=== PATIENT | female | born 1945 | race Two or more races ===

== ENCOUNTER 2018-07-15 12:28 | Observation (INO) | payer OTHER ==
[2018-07-15] MEDS ORDERED: NS 1,000 ML IV ONE ×3 (12:58→13:53)
--- NOTE | 2018-07-15 13:03 | EDPHY ---
H & P Stated Complaint: abd pain Time Seen by Provider: 07/15/18 12:53 HPI/ROS: CHIEF COMPLAINT: Abdominal pain HISTORY OF PRESENT ILLNESS: This is a 73-year-old Belarusian-speaking female who presents with 3 days of right-sided abdominal pain. She describes it as initially being more diffuse in then moving to the right. She points to her right lower quadrant/groin area when asked to identify the site of the pain. However, she also identifies a right upper quadrant and states that when she takes a deep breath she has pain throughout the right side. She was not aware of fever. She had 1 bout of vomiting yesterday, none since. She does not currently have nausea. She has not had diarrhea or constipation. No urinary symptoms. She has had an umbilical hernia repair, no other abdominal surgeries. REVIEW OF SYSTEMS: A ten system review of systems was performed and is negative with the exception of the items mentioned in the HPI. Past medical history: She describes poor circulation in her feet and seasonal allergies Past surgical history: Umbilical hernia repair Social history: She lives with . No tobacco or alcohol use. She is Belarusian -speaking. A [place]ian performance solutions specialist was used for all patient encounters. General Appearance: Alert. Vital signs reviewed. Initial blood pressure 140/ 84, temperature 38.5 degrees, heart rate 121. Eyes: Pupils equal and round, no conjunctival injection, no discharge. Anicteric. ENT, Mouth: Mucous membranes are moist, no oropharyngeal erythema or edema. Neck: No lymphadenopathy, supple. Respiratory: Lungs are clear to auscultation; no wheezes, rales, or rhonchi. Cardiovascular: Tachycardic; no murmur, rub, or gallop. Gastrointestinal: Abdomen is soft with tenderness, mild, in the right upper quadrant and also in the right lower quadrant, above McBurney's point, no guarding, no masses or organomegaly, bowel sounds normal. Skin: Warm and dry, no rashes on exposed skin, normal color. Back: Nontender to palpation over the thoracolumbar spine. No CVAT. Extremities: No lower extremity edema, no calf tenderness or swelling. Neurological: Alert and oriented. Moving all four extremities easily and equally. Psychiatric: Normal affect. - Personal History Current Tetanus/Diphtheria Vaccine: Yes Current Tetanus Diphtheria and Acellular Pertussis (TDAP): Yes - Medical/Surgical History Hx Asthma: No Hx Chronic Respiratory Disease: No Hx Diabetes: No Hx Cardiac Disease: No Hx Renal Disease: No Hx Cirrhosis: No Hx Alcoholism: No Hx HIV/AIDS: No Hx Splenectomy or Spleen Trauma: No - Social History Smoking Status: Never smoked Constitutional: Initial Vital Signs Temperature (C) 38.5 C H 07/15/18 12:31 Heart Rate 121 H 07/15/18 12:31 Respiratory Rate 20 07/15/18 12:31 Blood Pressure 140/84 H 07/15/18 12:31 O2 Sat (%) 94 07/15/18 12:31 O2 Delivery Mode Room Air Allergies/Adverse Reactions: No Known Allergies Allergy (Unverified 07/15/18 12:35) Home Medications: Medication Instructions Recorded Loratadine 10 mg PO DAILY 07/15/18 Pentoxifylline [TRENTAL 400mg (*)] 400 mg PO DAILY 07/15/18 Sertraline HCl [Zoloft 25mg (*)] 0 mg PO DAILY 07/15/18 Hydrocodone/APAP 5/325 [[place] 1 tab PO Q4-6PRN PRN #20 tab 07/16/18 5/325 (*)] Medical Decision Making ED Course/Re-evaluation: 73-year-old female with right-sided abdominal pain. Initial vital signs meet septic screening criteria with heart rate of 121 and temperature of 38.5 degrees. Sepsis workup is initiated. She is given Tylenol 1 g for fever. Abdominal exam is not entirely consistent with appendicitis, but she does have right lower quadrant tenderness. She also has some right upper quadrant tenderness raising the specter of gallbladder disease. Initial lactate 2.9. Patient re-evaluated at 1:55 p.m.. She states that she is feeling better. She is no longer tachycardic. Temperature 37.4 degrees. On reexamination of her abdomen she continues right upper and right lower quadrant tenderness, perhaps slightly worse in the right quadrant now. Liver functions are essentially normal with the exception of bilirubin that is elevated, primarily unconjugated. Her white blood cell count is over 22,000. Repeat lactate after IVF is 1.4. CT of abd/pelvis shows cholecystitis (I have reviewed the images and discussed with ). Dr. Carter notified. CXR reviewed, NAPD. Flagyl and ceftriaxone IV ordered. Patient received a total of 3L IVF in ED. Dr. Carter examined patient in ED and is planning admission and cholecystectomy. She remained stable while in ED. Differential Diagnosis: I considered ddx that includes but is not limited to cholecystitis, appendicitis , mesenteric ischemia, bowel obstruction, urinary tract infection/ pyelonephritis. - Data Points Laboratory Results: Laboratory Results 07/15/18 13:00 07/15/18 13:00 Microbiology Results: MICROBIOLOGY 07/15/18 14:05 Blood Blood Culture - Preliminary 07/15/18 13:00 Blood Blood Culture - Preliminary Medications Given: Discontinued Medications Acetaminophen (Tylenol) 1,000 mg PO EDNOW ONE Stop: 07/15/18 13:09 Last Admin: 07/15/18 13:15 Dose: 1,000 mg Bupivacaine HCl (Sensorcaine 0.5% Vial) Confirm Administered Dose 30 ml .ROUTE .STK-MED ONE Stop: 07/15/18 19:15 Last Admin: 07/15/18 20:09 Dose: 30 ml Cetirizine HCl (Zyrtec) 10 mg PO DAILY REEMA Stop: 01/12/19 08:59 Last Admin: 07/16/18 08:31 Dose: 10 mg Sodium Chloride (Ns) 1,000 mls @ 0 mls/hr IV ONCE ONE PRN Reason: Wide Open Stop: 07/15/18 12:59 Last Admin: 07/15/18 13:04 Dose: 1,000 mls Sodium Chloride (Ns) 1,000 mls @ 0 mls/hr IV EDNOW ONE; Wide Open PRN Reason: Protocol Stop: 07/15/18 13:09 Last Admin: 07/15/18 14:01 Dose: 1,000 mls Sodium Chloride (Ns) 1,000 mls @ 0 mls/hr IV EDNOW ONE; Wide Open PRN Reason: Protocol Stop: 07/15/18 13:54 Last Admin: 07/15/18 15:20 Dose: 1,000 mls Ceftriaxone Sodium/Dextrose (Rocephin 1 Gm (Premix)) 50 mls @ 100 mls/hr IV EDNOW ONE PRN Reason: Protocol Stop: 07/15/18 15:37 Last Admin: 07/15/18 15:21 Dose: 50 mls Metronidazole/Sodium Chloride (Flagyl 500 Mg (Premix)) 100 mls @ 100 mls/hr IV EDNOW ONE PRN Reason: Protocol Stop: 07/15/18 16:07 Last Admin: 07/15/18 15:45 Dose: 100 mls Ibuprofen (Motrin) 600 mg PO Q6HRS PRN PRN Reason: Pain, Mild Stop: 01/11/19 22:02 Last Admin: 07/16/18 08:31 Dose: 600 mg Lidocaine HCl (Xylocaine-Mpf 1% Sdv) Confirm Administered Dose 5 ml .ROUTE .STK- MED ONE Stop: 07/15/18 19:15 Last Admin: 07/15/18 20:10 Dose: 5 ml Lidocaine HCl (Xylocaine-Mpf 1% Sdv) Confirm Administered Dose 25 ml .ROUTE .STK -MED ONE Stop: 07/15/18 19:15 Last Admin: 07/15/18 22:36 Dose: Not Given Midazolam HCl (Versed) 1 mg IVP ONCALL ONE Stop: 07/15/18 19:09 Last Admin: 07/15/18 19:29 Dose: 1 mg Sertraline HCl (Zoloft) 50 mg PO DAILY REEMA Stop: 01/12/19 08:59 Last Admin: 07/16/18 08:31 Dose: 50 mg Departure - Departure Disposition: [facility] Inpatient Acute Clinical Impression: Acute cholecystitis Condition: Fair
[2018-07-15] MEDS ORDERED: ACETAMINOPHEN 500 MG TAB PO ONE (13:08)
[2018-07-15 13:15] LABS: PLATELET COUNT 372 10^3/uL (150-400)
[2018-07-15 13:32] LABS: INR 1.24 (0.83-1.16); PROTIME(PATIENT) 15.1 SEC (12.0-15.0)
[2018-07-15] MEDS ORDERED: IOPAMIDOL (ISOVUE-300) 100 ML BTL ONE (14:09)
--- NOTE | 2018-07-15 16:32 | PDGENHP ---
History and Physical - Chief Complaint Right upper quadrant abdominal pain - History of Present Illness Teresa is a 73-year-old woman who presents with -3 days of right upper quadrant abdominal pain not associated with food. The patient has been eating minimal amounts due to the abdominal pain. She denies nausea vomiting or diarrhea. She denies acholic stools or signs of obstructive jaundice. no prior episodes. Her pain is 6-8 out of 10. Pressure and deep breathing make it worse. Resting makes it better. History Information - Allergies/Home Medication List Allergies/Adverse Reactions: No Known Allergies Allergy (Unverified 07/15/18 12:35) Home Medications: Loratadine 10 mg PO DAILY 07/15/18 [Last Taken 07/15/18] Pentoxifylline [TRENTAL 400mg (*)] 400 mg PO DAILY 07/15/18 [Last Taken Unknown] Sertraline HCl [Zoloft 25mg (*)] 0 mg PO DAILY 07/15/18 [Last Taken Unknown] I have personally reviewed and updated: medical history, surgical history - Past Medical History hypertension, peripheral artery disease - Surgical History Reports: hernia repair (lower abdominal) - Family History Positive for: non-pertinent - Social History Smoking Status: Never smoked Review of Systems Review of Systems: ROS: 2-9 pt reviewed & negative except for what was stated in HPI & below Constitutional: Reports: malaise Gastrointestinal: Reports: abdominal pain. Denies: black stools, rectal bleeding, diarrhea, nausea Physical Exam Physical Exam: alert oriented minimal distress Anicteric sclera Regular rate and rhythm Clear to auscultation bilaterally Abdomen soft tender in the right upper quadrant positive Morillo's sign Extremities without edema 2+ / 2+ dorsalis pedisradial and femoral pulses nonfocal neurologic exam Trachea midline no JVD Skin normal turgor and tone Normal affect and mood Temp Pulse Resp BP Pulse Ox 37.0 C 83 16 116/57 L 93 07/15/18 16:11 07/15/18 16:11 07/15/18 16:11 07/15/18 16:11 07/15/18 16:11 Lab Data & Imaging Review 07/15/18 13:00 07/15/18 13:00 WBC 22.47 10^3/uL (3.80-9.50) H 07/15/18 13:00 RBC 5.07 10^6/uL (4.18-5.33) 07/15/18 13:00 Hgb 15.0 g/dL (12.6-16.3) 07/15/18 13:00 Hct 43.7 % (38.0-47.0) 07/15/18 13:00 MCV 86.2 fL (81.5-99.8) 07/15/18 13:00 MCH 29.6 pg (27.9-34.1) 07/15/18 13:00 MCHC 34.3 g/dL (32.4-36.7) 07/15/18 13:00 RDW 13.1 % (11.5-15.2) 07/15/18 13:00 Plt Count 372 10^3/uL (150-400) 07/15/18 13:00 MPV 9.9 fL (8.7-11.7) 07/15/18 13:00 Neut % (Auto) Not Reported 07/15/18 13:00 Lymph % (Auto) Not Reported 07/15/18 13:00 [place] % (Auto) Not Reported 07/15/18 13:00 Eos % (Auto) Not Reported 07/15/18 13:00 Baso % (Auto) Not Reported 07/15/18 13:00 Nucleat RBC Rel Count Not Reported 07/15/18 13:00 Absolute Neuts (auto) Not Reported 07/15/18 13:00 Absolute Lymphs (auto) Not Reported 07/15/18 13:00 Absolute Monos (auto) Not Reported 07/15/18 13:00 Absolute Eos (auto) Not Reported 07/15/18 13:00 Absolute Basos (auto) Not Reported 07/15/18 13:00 Absolute Nucleated RBC Not Reported 07/15/18 13:00 Immature Gran % Not Reported 07/15/18 13:00 Seg Neutrophils % 72.3 % 07/15/18 13:00 Band Neutrophils % 0.0 % 07/15/18 13:00 Lymphocytes % 17.8 % 07/15/18 13:00 Monocytes % 9.9 % 07/15/18 13:00 Eosinophils % 0.0 % 07/15/18 13:00 Basophils % 0.0 % 07/15/18 13:00 Metamyelocytes % 0.0 % 07/15/18 13:00 Myelocytes % 0.0 % 07/15/18 13:00 Promyelocytes % 0.0 % 07/15/18 13:00 Blast Cells % 0.0 % 07/15/18 13:00 Immature Gran # Not Reported 07/15/18 13:00 Absolute Seg Neuts 16.25 10^3/uL (1.70-6.50) H 07/15/18 13:00 Absolute Band Neuts 0.00 10^3/uL (0.00-0.70) 07/15/18 13:00 Absolute Lymphocytes 4.00 10^3/uL (1.00-3.00) H 07/15/18 13:00 Absolute Monocytes 2.22 10^3/uL (0.30-0.80) H 07/15/18 13:00 Absolute Eosinophils 0.00 10^3/uL (0.03-0.40) L 07/15/18 13:00 Absolute Basophils 0.00 10^3/uL (0.02-0.10) L 07/15/18 13:00 Absolute Metamyelocyte 0.00 10^3/mL (0.00-0.00) 07/15/18 13:00 Absolute Myelocytes 0.00 10^3/mL (0.00-0.00) 07/15/18 13:00 Absolute Promyelocytes 0.00 10^3/uL (0.00-0.00) 07/15/18 13:00 Absolute Plasma Cells 0.00 10^3/uL (0.00-0.00) 07/15/18 13:00 Nucleated RBCs 0 /100 WBC (0-0) 07/15/18 13:00 RBC/WBC/PLT Morphology NORMAL (NORMAL) 07/15/18 13:00 Absolute Blast Cells 0.00 10^3/uL (0.00-0.00) 07/15/18 13:00 Plasma Cells % 0.0 % 07/15/18 13:00 Platelet Estimate ADEQUATE (ADEQ) 07/15/18 13:00 PT 15.1 SEC (12.0-15.0) H 07/15/18 13:00 INR 1.24 (0.83-1.16) H 07/15/18 13:00 APTT 30.5 SEC (23.0-38.0) 07/15/18 13:00 VBG Lactic Acid 1.4 mmol/L (0.7-2.1) 07/15/18 14:55 Sodium 136 mEq/L (135-145) 07/15/18 13:00 Potassium 4.4 mEq/L (3.5-5.2) 07/15/18 13:00 Chloride 100 mEq/L (97-110) 07/15/18 13:00 Carbon Dioxide 21 mEq/l (22-31) L 07/15/18 13:00 Anion Gap 15 mEq/L (6-14) H 07/15/18 13:00 BUN 16 mg/dL (7-23) 07/15/18 13:00 Creatinine 1.0 mg/dL (0.6-1.0) 07/15/18 13:00 Estimated GFR 54 07/15/18 13:00 Glucose 171 mg/dL (70-100) H 07/15/18 13:00 Calcium 8.7 mg/dL (8.5-10.4) 07/15/18 13:00 Total Bilirubin 1.9 mg/dL (0.1-1.4) H 07/15/18 13:00 Conjugated Bilirubin 0.1 mg/dL (0.0-0.5) 07/15/18 13:00 Unconjugated Bilirubin 1.8 mg/dL (0.0-1.1) H 07/15/18 13:00 AST 34 IU/L (14-46) 07/15/18 13:00 ALT 37 IU/L (9-52) 07/15/18 13:00 Alkaline Phosphatase 76 IU/L (38-126) 07/15/18 13:00 Total Protein 7.8 g/dL (6.3-8.2) 07/15/18 13:00 Albumin 4.1 g/dL (3.5-5.0) 07/15/18 13:00 Lipase 44 IU/L (23-300) 07/15/18 13:00 Imaging Review: CT personally reviewed on PACS discussed with Dr. Napier -agree with with acute cholecystitis no stones are seen but this is not the best modality to see them Chest X-Ray results: no infiltrate Assessment & Plan Assessment: acute cholecystitis with ascites Plan: laparoscopic cholecystectomy possible open conversions. The risks benefits and alternatives to surgery have been outlined with the patient and her son-in-law through encapsulator. All questions were addressed. Possibility for open surgery based on her leukocytosis and degree of inflammation werespecifically outlined. Although her bilirubin is up all of her transaminases and alkaline phosphatase are normal I believe this is secondary to the inflammation. She has been placed on ceftriaxone already. Await surgery for 8 hours after her last meal at 11:00 this morning. Anticipate at least 23 hour stay longer for signs of continued inflammation or open operation
[2018-07-15] MEDS ORDERED: LR 1,000 ML IV SCH (17:00)
[2018-07-15] MEDS ORDERED: MIDAZOLAM 2 MG/2 ML VIAL IVP ONE (19:08)
[2018-07-15] MEDS ORDERED: BUPIVACAINE 0.5% 30 ML SDV ONE (19:14)
[2018-07-15] MEDS ORDERED: LIDOCAINE 1% 5 ML SDV ONE ×2 (19:14)
--- NOTE | 2018-07-15 19:20 | PDANEPAE ---
ANE History of Present Illness Lap vs open cholecystomy ANE Past Medical History - Cardiovascular History Hx Hypertension: No Hx Arrhythmias: No Hx Chest Pain: No Hx Coronary Artery / Peripheral Vascular Disease: No Hx CHF / Valvular Disease: No Hx Palpitations: No - Pulmonary History Hx COPD: No Hx Asthma/Reactive Airway Disease: No Hx Recent Upper Respiratory Infection: No Hx Oxygen in Use at Home: No Hx Sleep Apnea: No - Endocrine History Hx Diabetes: No Hypothyroid: No Hyperthyroid: No Obesity: mild - Chronic Pain History Chronic Pain: No ANE Review of Systems Review of Systems: ANE Patient History - Allergies Allergies/Adverse Reactions: No Known Allergies Allergy (Unverified 07/15/18 12:35) - Home Medications Home Medications: Loratadine 10 mg PO DAILY 07/15/18 [Last Taken 07/15/18] Pentoxifylline [TRENTAL 400mg (*)] 400 mg PO DAILY 07/15/18 [Last Taken Unknown] Sertraline HCl [Zoloft 25mg (*)] 0 mg PO DAILY 07/15/18 [Last Taken Unknown] - NPO status NPO Since - Liquids (Date): 07/15/18 NPO Since - Liquids (Time): 13:15 NPO Since - Solids (Date): 07/15/18 NPO Since - Solids (Time): 11:00 - Smoking Hx Smoking Status: Never smoked ANE Labs/Vital Signs - Labs Result Diagrams: 07/15/18 13:00 07/15/18 13:00 - Vital Signs Blood Pressure: 116/57 Heart Rate: 83 Respiratory Rate: 16 O2 Sat (%): 93 Height: 155 cm Weight: 66.497 kg ANE Physical Exam - Airway Neck exam: FROM Mallampati Score: Class 1 - Pulmonary Pulmonary: no respiratory distress, no rales or rhonchi - Cardiovascular Cardiovascular: regular rate and rhythym, systolic murmur - ASA Status ASA Status: II ANE Anesthesia Plan Anesthesia Plan: general endotracheal anesthesia
[2018-07-15] MEDS ORDERED: PROPOFOL/EMULSION 500 MG/50 ML BOTTLE IV ONE ×2 (19:24)
[2018-07-15] MEDS ORDERED: fentaNYL 250 MCG/5 ML INJ ONE (19:24)
[2018-07-15] MEDS ORDERED: MIDAZOLAM 2 MG/2 ML VIAL ONE (19:27)
[2018-07-15] MEDS ORDERED: ONDANSETRON 4 MG/2 ML VIAL ONE (19:55)
[2018-07-15] MEDS ORDERED: DEXAMETHASONE 4 MG/ML VIAL ONE ×3 (19:55→20:33)
[2018-07-15] MEDS ORDERED: PHENYLEPHRINE HCL 100 MCG/ML SYR ONE (20:31)
[2018-07-15] MEDS ORDERED: ROCURONIUM 50 MG/5 ML VIAL ONE ×2 (20:31)
[2018-07-15] MEDS ORDERED: HYDROmorphONE/DILAUDID 1 MG/ML INJ IVP PRN (21:26)
[2018-07-15] MEDS ORDERED: ALBUTEROL 3 ML DEYVIAL IH PRN (21:26)
[2018-07-15] MEDS ORDERED: ONDANSETRON 4 MG/2 ML VIAL IVP PRN (21:26)
[2018-07-15] MEDS ORDERED: PROMETHAZINE HCL 25 MG/ML INJ IVP PRN (21:26)
[2018-07-15] MEDS ORDERED: HYDROCODONE/APAP 5/325 TAB PO PRN ×2 (21:26→22:03)
[2018-07-15] MEDS ORDERED: NALOXONE HCL 0.4 MG/ML INJ IVP PRN (21:26)
[2018-07-15] MEDS ORDERED: fentaNYL 100 MCG/2 ML INJ IVP PRN (21:26)
[2018-07-15] MEDS ORDERED: LABETALOL HCL 5 MG/ML 20 ML MDV IVP PRN (21:26)
[2018-07-15] MEDS ORDERED: LR 500 ML IV PRN (21:26)
[2018-07-15] MEDS ORDERED: KETOROLAC 30 MG/1 ML SDV ONE (21:32)
[2018-07-15] MEDS ORDERED: SUGAMMADEX SODIUM 200 MG/2 ML VIAL IVP ONE (21:33)
[2018-07-15] MEDS ORDERED: IBUPROFEN 600 MG TAB PO PRN (22:03)
--- NOTE | 2018-07-15 22:05 | POSTOPPROG ---
Post Op Note Date of Operation: 07/15/18 Surgeon: Rashid Carter [employer] Firefighter: keith Anesthesiologist: Jonah Anesthesia: GET(General Endotracheal) Pre-op Diagnosis: Acute cholecystitis Post-op Diagnosis: same Procedure: Lap suzy Findings: purulent ascities, stones/inflammation Inf/Abcess present in the surg proc area at time of surgery?: Yes Depth: Organ Space EBL: 50-100 Specimen(s): gallbladder and stones to permanent pathology
--- NOTE | 2018-07-15 22:11 | SUROPNOTE ---
[facility] Operative Report - Surgery Date of surgery: 07/15/2018 Indications for surgery: This is a 73-year-old patient with 2 days of worsening right upper quadrant abdominal pain. Found to have leukocytosis of 22,[address] scan demonstrative of acute cholecystitis. After understanding the risks and benefits of the surgery the patient was consented to laparoscopic possible open cholecystectomy. Preop diagnosis: Acute cholecystitis Postop diagnosis:Same Procedure: laparoscopic cholecystectomy Surgeon: Rashid Carter Anesthesiologist: Dr. Roselia Mckenzie General endotracheal anesthesia Specimen gallbladder and stones permanent pathology EBL 100 mL Procedure details: The patient was brought to the operating room after induction of endotracheal anesthesia in supine position her abdomen was prepped with chlorhexidine and draped sterilely, time out procedure was then performed according incisional standards. Local anesthetic was then infused in the skin and subcutaneous tissues of the trocar sites. Open supraumbilical trocar placement was performed in the standard fashion. The abdomen was insufflated to 15 torr with carbon dioxide. Purulent ascites was noted on the right paracolic gutter extending to the pelvis This was aspirated. The gallbladder was covered by omentum and blunt and electrocautery dissection was used to free the gallbladder Due to the intense amount of inflammation around the infundibulum it was decided to perform a top down approach. The gallbladder was dissected away from the liver bed using electrocautery. The cystic artery and cystic duct were then identified the triangle of KIM the artery was triply clipped and ligated the cystic duct was controlled using 0 Vicryl Endoloop. Hemostasis was then assured. Needle instruments sponge counts were gallbladder was brought out of the abdomen in an Endopouch through the umbilical incision. Working trochars removed the fascia was reapproximated using 0 Vicryl at the level of the umbilicus all ports were then reapproximated the skin level using 4-0 Monocryl. Dermabond was applied the patient was awakened extubated and taken to the recovery room in stable condition with no immediate complications.
--- NOTE | 2018-07-16 08:11 | SOAPPROG ---
SOAP Progress Note Assessment/Plan: Assessment/Plan: 73 yo POD#1 s/p lap suzy for acute cholecystitis Doing well Vanessa liquids OOB with assist Anicteric RRR CTA Soft appropriately tender. Non distended. incisions c/d Adv diet D/C later today/tomorrow if meets unit criteria, tolerating food and afebrile 07/16/18 08:07 Objective: Vital Signs Temp Pulse Resp BP Pulse Ox 36.8 C 71 16 133/58 H 95 07/16/18 03:46 07/16/18 03:46 07/16/18 03:46 07/16/18 03:46 07/16/18 03:46 07/15/18 07/16/18 07/17/18 05:59 05:59 05:59 Intake Total 4630 Output Total 700 Balance 3930 PT 15.1 SEC (12.0-15.0) H 07/15/18 13:00 INR 1.24 (0.83-1.16) H 07/15/18 13:00 ICD10 Worksheet Patient Problems: Problems Problem Status Onset Acute cholecystitis with chronic cholecystitis Acute - ICD10 Problem Qualifiers (1) Acute cholecystitis with chronic cholecystitis
[2018-07-16] MEDS ORDERED: CETIRIZINE 10 MG TAB PO SCH (09:00)
[2018-07-16] MEDS ORDERED: SERTRALINE HCL 25 MG TAB PO SCH (09:00)
--- NOTE | 2018-07-16 11:17 | POSTANESTH ---
Post Anesthetic Evaluation Cardiovascular Status: Normal, Stable Respiratory Status: Normal, Stable Level of Consciousness/Mental Status: Can Participate in Eval Pain Control: Adequate, Prn Tx Ordered Nausea/Vomiting Control: Adequate, Prn Tx Ordered Complications Possibly Related to Anesthesia: None Noted
--- NOTE | 2018-07-16 11:24 | ASMTCMCOM ---
CM Note CM Note Notes: Chart reviewed for discharge planning purposes. 73 year old patient admitted via ED with right upper quadrant pain. To OR for laporoscopic choley. Likely to dc independently . CM available should needs arise.' Plan: Likely home when medically cleared for discharge. Date Signed: 07/16/2018 11:23 AM Electronically Signed By:Elise Petersen RN
[2018-07-16 12:08] VITALS: BP 122/55
--- NOTE | 2018-07-16 12:19 | ASMTLACE ---
LACE Length of stay for Answers: Less than 1 day current admission Comorbidities - select Answers: Other Notes: Umbilical hernia repair all that apply # of Emergency department Answers: 0 visits in the last 6 months Score: 1 Date Signed: 07/16/2018 12:19 PM Electronically Signed By:Elise Petersen RN
--- NOTE | 2018-07-16 12:21 | ASMTDCNOTE ---
Case Management Discharge Discharge Order Complete? Answers: Yes Patient to Obtain Answers: Independently Medications Transportation Arranged Answers: Family/Friends Family Notified Answers: Yes Discharge Comments Notes: Patient medically cleared fro independent discharge to home no needs. CM available should needs arise. Date Signed: 07/16/2018 12:21 PM Electronically Signed By:Elise Petersen RN
[2018-07-16] MEDS ORDERED: PENTOXIFYLLINE 400 MG EXT REL TAB PO SCH (18:00)
== END 2018-07-16 13:54 | disposition home or self-care (01) ==
LOC: INTOOBSV 14:59 → F3E 16:02
PROVIDERS: ADMIT Surgery; ATTEND Surgery
PROC: 0FT44ZZ Resection of Gallbladder, Percutaneous Endoscopic Approach (ICD-10-PCS; principal; 2018-07-15 19:00)
DX: K80.12 Calculus of gallbladder with acute and chronic cholecystitis without obstruction (principal); R18.8 Other ascites; E86.9 Volume depletion, unspecified
CPT/HCPCS: 96365; G0378; J0696; J1100; J1885; J2250; J2370; J2405; J2704; J3010; Q9967